=== PATIENT | male | born 1980 | race Caucasian/White ===

== ENCOUNTER 2019-09-30 09:42 | Emergency (ER) | payer OTHER, BC ==
[~2019-09-30] VITALS: Ht 170.2 cm; Wt 77.1 kg
[2019-09-30 12:03] VITALS: BP 134/88
== END 2019-09-30 12:00 | disposition home or self-care (01) ==
LOC: ER 09:42
DX: S61.213A Laceration without foreign body of left middle finger without damage to nail, initial encounter (principal); F17.210 Nicotine dependence, cigarettes, uncomplicated; W26.8XXA Contact with other sharp object(s), not elsewhere classified, initial encounter; Y93.89 Activity, other specified; Y92.89 Other specified places as the place of occurrence of the external cause; Y99.0 Civilian activity done for income or pay

== ENCOUNTER 2019-10-10 13:19 | Emergency (ER) | payer OTHER, BC ==
[~2019-10-10] VITALS: Ht 170.2 cm; Wt 77.1 kg
[2019-10-10 13:22] VITALS: BP 120/74
== END 2019-10-10 13:45 | disposition home or self-care (01) ==
LOC: ER 13:19
DX: S61.213D Laceration without foreign body of left middle finger without damage to nail, subsequent encounter (principal); F17.210 Nicotine dependence, cigarettes, uncomplicated; W26.8XXD Contact with other sharp object(s), not elsewhere classified, subsequent encounter